=== PATIENT | female | born 1950 | race Asian ===

== ENCOUNTER 2018-04-25 18:17 | Inpatient (IN) | payer OTHER ==
[~2018-04-25] VITALS: Ht 165.1 cm; Wt 78.9 kg
[~2018-04-25 18:17] MED LIST: NEU300 PO; ZOCOR20 MG PO
[2018-04-25 19:26] LABS: PLATELET COUNT 248 x10^3mcL (130-400); RED CELL DISTRIBUTION WIDTH 13.6 % (11.5-14.5)
[2018-04-25 19:41] LABS: CALCIUM 8.8 mg/dL (8.5-10.1); CARBON DIOXIDE 28.7 mmol/L (21-32); CHLORIDE SERUM 105 mmol/L (98-107); CREATININE SERUM 0.7 mg/dL (0.6-1.0); GFR1 > 60 mL/min; GLUCOSE SERUM 92 mg/dL (74-106); POTASSIUM SERUM 3.7 mmol/L (3.5-5.1); SODIUM SERUM 140 mmol/L (136-145)
[2018-04-25 19:45] LABS: ALBUMIN 3.5 g/dL (3.4-5.0); ALKALINE PHOSPHATASE 99 U/L (46-116); ALT/SGPT 17 U/L (14-59); AST/SGOT 13 U/L (15-37); BILIRUBIN TOTAL 0.3 mg/dL (0.20-1.00); CHOLESTEROL 182 mg/dL (<200); CHOLESTEROL/HDL RATIO 3.3; HDL CHOLESTEROL 56 mg/dL (40-60); LIPASE 174 IU/L (73-393); TOTAL PROTEIN, SERUM 7.5 g/dL (6.4-8.2); TRIGLYCERIDES 140 mg/dL (<150)
[2018-04-25 19:47] LABS: FREE T4 0.87 ng/dL (0.76-1.46); FREE THYROXINE INDEX 2.4 ug/dL (1.4-4.5); T3 TOTAL 1.43 ng/mL; T4(THYROXINE) 7.6 ug/dL (4.7-13.3)
[2018-04-25 20:44] VITALS: BP 144/60
[2018-04-25 20:48] LABS: MAGNESIUM 1.8 mg/dL (1.8-2.4); PHOSPHOROUS 4.1 mg/dL (2.5-4.9)
[2018-04-25 20:57] VITALS: Ht 165.1 cm; Wt 78.9 kg
[2018-04-26 04:40] LABS: BASOPHIL % 1.2 % (0-2); PLATELET COUNT 240 x10^3mcL (130-400); RED CELL DISTRIBUTION WIDTH 13.6 % (11.5-14.5)
[2018-04-26 04:52] LABS: CALCIUM 8.4 mg/dL (8.5-10.1); CHLORIDE SERUM 104 mmol/L (98-107); CREATININE SERUM 0.6 mg/dL (0.6-1.0); GFR1 > 60 mL/min; GLUCOSE SERUM 128 mg/dL (74-106); MAGNESIUM 1.9 mg/dL (1.8-2.4); PHOSPHOROUS 4.2 mg/dL (2.5-4.9); POTASSIUM SERUM 3.7 mmol/L (3.5-5.1); SODIUM SERUM 135 mmol/L (136-145)
[2018-04-26 05:59] VITALS: BP 170/70
[2018-04-26 06:31] LABS: UA SPECIFIC GRAVITY <=1.005 (1.005-1.035); microscopic required? YES; urine erythrocyte NEGATIVE (NEGATIVE)
[2018-04-26 06:38] LABS: AMPHETAMINE QUAL UR NONE DETECTED (See below)
[2018-04-26 08:45] VITALS: BP 172/67
[2018-04-26 12:30] VITALS: BP 176/54
[2018-04-26 14:28] VITALS: BP 168/67
[2018-04-26 17:40] VITALS: BP 184/75
[2018-04-26 21:23] VITALS: BP 156/62
[2018-04-27 05:22] VITALS: BP 173/70
[2018-04-27 06:45] LABS: CALCIUM 8.7 mg/dL (8.5-10.1); CARBON DIOXIDE 26.7 mmol/L (21-32); CHLORIDE SERUM 107 mmol/L (98-107); CREATININE SERUM 0.6 mg/dL (0.6-1.0); GFR1 > 60 mL/min; GLUCOSE SERUM 107 mg/dL (74-106); POTASSIUM SERUM 3.7 mmol/L (3.5-5.1); SODIUM SERUM 142 mmol/L (136-145)
[2018-04-27 06:51] LABS: BASOPHIL % 0.8 % (0-2); PLATELET COUNT 225 x10^3mcL (130-400); RED CELL DISTRIBUTION WIDTH 13.5 % (11.5-14.5)
[2018-04-27 08:45] VITALS: BP 187/109; BP 187/83
[2018-04-27 12:45] VITALS: BP 140/65
[2018-04-27] MEDS ORDERED: NIFEDIPINE30 MG PO (15:36)
[2018-04-27] MEDS ORDERED: METOPROLOL TART50 MG PO (15:36)
[2018-04-27] MEDS ORDERED: GOOD SENSE ASPI81 M3 PO (15:37)
[2018-04-27] MEDS ORDERED: LIPI20 PO (15:37)
[2018-04-27] MEDS ORDERED: LISINOPRIL10 MG PO (15:37)
[2018-04-27 15:49] VITALS: BP 140/65
== END 2018-04-27 16:32 | disposition home or self-care (01) | DRG 308 ==
LOC: ED 18:17 → DU 19:53
PROVIDERS: Internal Medicine; Specialist
DX: I48.92 Unspecified atrial flutter (principal); N17.0 Acute kidney failure with tubular necrosis; D68.69 Other thrombophilia; E11.51 Type 2 diabetes mellitus with diabetic peripheral angiopathy without gangrene; I16.0 Hypertensive urgency; E78.5 Hyperlipidemia, unspecified; Z79.4 Long term (current) use of insulin; Z68.30 Body mass index [BMI] 30.0-30.9, adult
CPT/HCPCS: 82962; 83880; 84439; A9500; J2785; J3490; J7030; Q0092

== ENCOUNTER 2019-02-17 09:59 | Emergency (ER) | payer OTHER ==
[~2019-02-17] VITALS: Ht 157.5 cm; Wt 79.4 kg
[~2019-02-17 09:59] MED LIST changes: +GOOD SENSE ASPI81 M3 PO; +LIPI20 PO; +LISINOPRIL10 MG PO; +METOPROLOL TART50 MG PO; +NIFEDIPINE30 MG PO
[2019-02-17 10:01] VITALS: BP 140/72; Ht 157.5 cm; Wt 79.4 kg
== END 2019-02-17 10:43 | disposition home or self-care (01) ==
LOC: ED 09:59
DX: H10.31 Unspecified acute conjunctivitis, right eye (principal); I10 Essential (primary) hypertension; E11.9 Type 2 diabetes mellitus without complications; E78.00 Pure hypercholesterolemia, unspecified